=== PATIENT | male | born 2000 | race African-American/Black ===

== ENCOUNTER 2019-10-23 14:28 | Emergency (ER) | payer OTHER, SELFPAY ==
[2019-10-23 14:35] VITALS: BP 136/79; PULSE 80; RESP 18; TEMP 36.8; O2SAT 99; BMI 30.3
--- NOTE | 2019-10-23 14:50 | ED_ITS ---
HPI - Male Genitourinary General Chief complaint: Urogenital-Male Stated complaint: pain in left testicle Time Seen by Provider: 10/23/19 14:35 Source: patient Mode of arrival: Family Vehicle Limitations: no limitations History of Present Illness HPI Narrative: 19-year-old male nonsmoker with benign medical history presents with a chief complaint of left testicular pain off and on since July or August. It started flaring up again earlier today or yesterday. He denies any provocation or palliation. He states when it hurts it is intensely painful and denies any radiation of the pain. He denies nausea, vomiting or diarrhea. He denies any trouble with urination such as dysuria, frequency or urgency. He denies any drainage. He has had no fever chills nor any change in bowel habits. He was seen and evaluated at an outside facility a few months ago and had an ultrasound which was unremarkable. He has had no follow-up since MD Complaint: testicle pain and testicle swelling Onset (ago): day(s) Duration: intermittent Location: left testicle Severity: moderate Quality: aching Relieving factors: none Exacerbating factors: none Associated symptoms: Reports denies other symptoms Related Data Allergies Allergy/AdvReac Type Severity Reaction Status Date / Time No Known Drug Allergies Allergy Verified 10/23/19 14:41 Review of Systems Constitutional Constitutional: Denies chills, Denies fatigue, Denies fever(s), Denies frequent falls, Denies lethargy and Denies weakness Eyes Eyes: Denies change in vision, Denies eye discharge, Denies irritation and Denies loss of vision ENT Ears, Nose, Mouth, and Throat: Denies change in voice, Denies dizziness, Denies neck pain, Denies sore throat and Denies throat swelling Cardiovascular Cardiovascular: Denies chest pain, Denies irregular heart rhythm, Denies lightheadedness, Denies palpitations, Denies dyspnea, Denies dyspnea on exertion and Denies orthopnea Respiratory Respiratory: Denies cough, Denies dyspnea, Denies dyspnea on exertion and Denies wheezing Gastrointestinal Gastrointestinal: Denies abdominal pain, Denies change in bowel habits, Denies diarrhea, Denies nausea and Denies vomiting Genitourinary Genitourinary: Denies hematuria, Denies flank pain, Reports scrotal swelling, Reports testicular pain, Denies urinary incontinence and Denies urinary urgency Musculoskeletal Musculoskeletal: Denies back pain, Denies muscle weakness, Denies neck pain, Denies numbness and Denies tingling Integumentary/Breasts Skin/Breast: Denies pruritus, Denies erythema, Denies rash and Denies wounds Neurologic Neurologic: Denies behavioral changes, Denies confusion, Denies dizziness, Denies frequent falls, Denies loss of vision, Denies numbness, Denies tingling and Denies weakness Psychiatric Psychiatric: Denies anxiety, Denies behavioral changes, Denies confusion, Denies depression, Denies homicidal ideation and Denies suicidal ideation Endocrine Endocrine: Denies fatigue, Denies flushing and Denies palpitations Hematologic/Lymphatic Hematologic/Lymphatic: Denies easy bruising Allergic/Immunologic Allergic/Immunologic: Denies urticaria, Denies throat swelling and Denies wheezing Patient History Social History Smoking Status: Never smoker Smoking Status: Never smoker alcohol intake frequency: 0-2 drinks per day Substance Use Type: does not use Exam Narrative Exam Narrative: GENERAL: [19] year old patient appears stated age. Well- nourished, well-developed patient, in mild distress. HEAD: Atraumatic. Normocephalic. EYES: Pupils equal round and reactive. Extraocular motions intact. No scleral icterus. No injection or drainage. ENT: Nose without bleeding, purulent drainage. Throat without erythema, tonsillar hypertrophy or exudate. Airway patent. NECK: Trachea midline. Non tender CARDIOVASCULAR: Regular rate and rhythm without murmurs, gallops, or rubs. RESPIRATORY: Clear to auscultation. Breath sounds equal bilaterally. No wheezes, rales, or rhonchi. GASTROINTESTINAL: Abdomen soft, non-tender, nondistended. : examined in standing position. No obvious swelling or discoloration. Minimal tenderness to L testicle. B/L descended testicles. Circumcised, no lesions EXTREMITIES: No edema or joint tenderness. BACK: Nontender without deformity or crepitance. No flank tenderness. NEURO: AOx3. SKIN: No rash or erythema of visible areas Initial Vital Signs Initial Vital Signs: Vital Signs Temperature 98.3 F 10/23/19 14:35 Pulse Rate 80 10/23/19 14:35 Respiratory Rate 18 10/23/19 14:35 Blood Pressure 136/79 10/23/19 14:35 Pulse Oximetry 99 10/23/19 14:35 Course Orders Ordered: ED Orders 10/23/19 14:56 US scrotum Stat Vital Signs Vital signs: Vital Signs - 8 hr 10/23/19 14:35 10/23/19 16:15 Temperature 98.3 F Pulse Rate 80 86 Respiratory Rate 18 Blood Pressure 136/79 139/78 Pulse Oximetry 99 99 MDM - Male Genitourinary Medical Records Attestation: I reviewed the patient's medical records. Medical records narrative: Reviewed from would be, no findings on ultrasound. Return precautions given Imaging Data Scrotal US: Radiologist's Impression: Chart Viewer Diagnostics DATE TYPE STATUS AUTHOR Hx 10/23/19 14:56 AlisaKimberlyngadielkem KaitlinGlen Boone 19, M0 2000 [facility] ER, [facility] ED 185.42cm 104.326kg BMI: 30.3kg/m? Urogenital-Male Search Chart No Data to Display No Data to Display ONSET Today 16:15 Glen Madrigal 19 M 2000 [place] [address] Ultrasound Report Signed Patient: Glen Madrigal JMR#: [id number] : 2000Acct:[id number] Age/Sex: 19 MDate of Service: 10/23/19 Loc: ED Accession Number: [id number] Procedure: US scrotum Ordering Provider: Tomasz Fernandez D.O. PROCEDURE: US SCROTUM INDICATIONS: TESTICULAR PAIN AND SWELLING TECHNIQUE: Real-time scanning was performed of the scrotum and testicles, with image documentation. Color and pulse Doppler interrogation was performed of both testicles. COMPARISON: None. FINDINGS: Right: Testicle is normal in size at 5.4 x 2.6 x 3.3 cm, and homogenous in echotexture. Epididymis is normal in overall size and morphology. Trace hydrocele. No va ricoceles. Overlying scrotal skin is normal in thickness. Left: Testicle is normal in size at 5.4 x 2.5 x 2.7 cm, and homogeneous in echotexture. Epididymis is normal in overall size and morphology. Trace hydrocele. There is mild varicoceles. Overlying scrotal skin is normal in thickness. Doppler: Color and pulse Doppler demonstrate normal and symmetric arterial flow in both testicles. IMPRESSION: 1. Normal testicles bilaterally. No findings to suggest testicular torsion. Normal testicular mass. 2. No findings to suggest epididymitis. 3. Mild left varicocele. Dictated by: Nidhi Cuellar M.D. on 10/23/2019 at 15:57 Approved by: Nidhi Cuellar M.D. on 10/23/2019 at 16:00 Discharge Plan Departure Patient Disposition: Home Clinical Impression: Acute hydrocele Discharge Date/Time: 10/23/19 16:15 Instructions: DI for Hydrocele-Adult Activity Restrictions/Additional Instructions: *You have been diagnosed with [ acute hydrocele ] *What to do: *Take medications as directed *Follow up with your primary care provider in 2-3 days, call for an appointment. Let them know you were seen in the Emergency Department and that we ask that you be seen in follow up *Return to ER if you should have any new, worsening or concerning symptoms Referrals: Flor Germain MD [Non-Staff] - Stand Alone Forms: Work Release Note
--- NOTE | 2019-10-23 14:56 | DI.US.S_ITS ---
PROCEDURE: US SCROTUM INDICATIONS: TESTICULAR PAIN AND SWELLING TECHNIQUE: Real-time scanning was performed of the scrotum and testicles, with image documentation. Color and pulse Doppler interrogation was performed of both testicles. COMPARISON: None. FINDINGS: Right: Testicle is normal in size at 5.4 x 2.6 x 3.3 cm, and homogenous in echotexture. Epididymis is normal in overall size and morphology. Trace hydrocele. No varicoceles. Overlying scrotal skin is normal in thickness. Left: Testicle is normal in size at 5.4 x 2.5 x 2.7 cm, and homogeneous in echotexture. Epididymis is normal in overall size and morphology. Trace hydrocele. There is mild varicoceles. Overlying scrotal skin is normal in thickness. Doppler: Color and pulse Doppler demonstrate normal and symmetric arterial flow in both testicles. IMPRESSION: 1. Normal testicles bilaterally. No findings to suggest testicular torsion. Normal testicular mass. 2. No findings to suggest epididymitis. 3. Mild left varicocele. Dictated by: Nidhi Cuellar M.D. on 10/23/2019 at 15:57 Approved by: Nidhi Cuellar M.D. on 10/23/2019 at 16:00
[2019-10-23 16:15] VITALS: BP 139/78; PULSE 86; O2SAT 99
== END 2019-10-23 16:15 | disposition home or self-care (01) ==
PROVIDERS: Emergency Provider Emergency Medicine
DX: N43.3 Hydrocele, unspecified (principal)
CPT/HCPCS: 76870; 99281; 99283

== ENCOUNTER 2021-04-26 19:41 | Emergency (ER) | payer OTHER, SELFPAY ==
[2021-04-26 19:44] VITALS: BP 131/69; PULSE 94; RESP 16; TEMP 36.9; O2SAT 100; BMI 33.3
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
[2021-04-26 20:47] VITALS: BP 134/61; PULSE 85; RESP 16; O2SAT 100
--- NOTE | 2021-04-29 17:48 | PC.NURSE ---
ED provider report faxed to [facility] ED for continuity of care [phone]
== END 2021-04-26 20:56 | disposition home or self-care (01) ==
PROVIDERS: Emergency Provider Emergency Medicine
DX: M62.838 Other muscle spasm (principal); V89.2XXA Person injured in unspecified motor-vehicle accident, traffic, initial encounter
CPT/HCPCS: 72125; 99281; 99284